=== PATIENT | female | born 1975 | race Caucasian/White ===

== ENCOUNTER → 2016-11-18 | Outpatient (CLI) | payer OTHER ==
[~2016-11-18] MED LIST: ATIVAN0.5 MG PO; BIRTH CONTROL; MULTIVITAMINS1 EAC7; PRILOSEC40 MG PO
== END ==
LOC: ULTRA 09:19
DX: M79.604 Pain in right leg (principal); M79.89 Other specified soft tissue disorders

== ENCOUNTER 2018-06-22 18:34 | Emergency (ER) | payer OTHER ==
[~2018-06-22] VITALS: Ht 170.2 cm; Wt 98.9 kg
[2018-06-22] MEDS ORDERED: LEXAPRO20 MG (18:44)
--- NOTE | 2018-06-22 19:27 | EKG ---
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
[2018-06-22 19:41] LABS: ABSOLUTE NEUTROPHILS 8.5 thou/uL (1.4-8.2); BASOPHILS 0.9 % (0.0-2.0); EOSINOPHILS 0.8 % (0.0-3.0); HEMATOCRIT 43.4 % (37.0-47.0); HEMOGLOBIN 14.7 gm/dL (12.0-15.0); LYMPHOCYTES 26.9 % (24.0-44.0); MCH 28.8 pg (26.0-34.0); MCHC 33.9 g/dL (28.0-37.0); MCV 84.9 fL (80.0-100.0); MONOCYTES 8.1 % (1.0-8.0); PLATELET COUNT 274 thou/uL (150-400); POLYS 63.3 % (36.0-66.0); RBC 5.11 mil/uL (4.20-5.00); RDW 13.7 % (10.5-14.5); WBC 13.4 thou/uL (4.0-11.0)
[2018-06-22 19:52] LABS: ANION GAP 11 mmol/L (7-16); BUN 15 mg/dL (7-18); CHLORIDE 103 mmol/L (98-107); CO2 24 mmol/L (21-32); CREATININE 0.7 mg/dL (0.6-1.0); GLUCOSE 83 mg/dL (74-106); POTASSIUM 3.6 mmol/L (3.5-5.1); SODIUM 138 mmol/L (136-145)
[2018-06-22 20:00] LABS: TROPONIN-I <0.06 ng/mL (<0.06)
[2018-06-22] MEDS ORDERED: VALIUM5 MG PO (20:45)
[2018-06-22 21:40] VITALS: BP 104/68
== END 2018-06-22 21:00 | disposition home or self-care (01) ==
LOC: ER 18:34
PROVIDERS: Physician Assistant
DX: R06.02 Shortness of breath (principal); F32.9 Major depressive disorder, single episode, unspecified; F41.9 Anxiety disorder, unspecified

== ENCOUNTER → 2020-08-07 | Outpatient (CLI) | payer OTHER ==
[~2020-08-07] MED LIST changes: +LEXAPRO20 MG; +VALIUM5 MG PO
== END ==
LOC: ULTRA 13:36
PROVIDERS: ATTEND Family Medicine
DX: K80.80 Other cholelithiasis without obstruction (principal); R10.11 Right upper quadrant pain

== ENCOUNTER → 2020-08-24 | Outpatient (CLI) | payer OTHER | LOC: LAB 10:16 | PROVIDERS: ATTEND Anesthesiology | DX: Z01.812 Encounter for preprocedural laboratory examination (principal); Z20.822 Contact with and (suspected) exposure to COVID-19 ==